=== PATIENT | male | born 1950 | race African-American/Black ===

== ENCOUNTER 2016-10-22 13:06 | Emergency (ER) | payer OTHER | END 2016-10-22 15:28 | disposition critical access hospital (66) | LOC: ER 13:06 | DX: I11.0 Hypertensive heart disease with heart failure (principal); I50.9 Heart failure, unspecified; J90 Pleural effusion, not elsewhere classified; I25.10 Atherosclerotic heart disease of native coronary artery without angina pectoris | CPT/HCPCS: 36415; 96374; J1940 ==

== ENCOUNTER 2016-10-22 13:06 | Inpatient (IN) | payer OTHER ==
[~2016-10-22] VITALS: Ht 188 cm; Wt 108.5 kg
== END 2016-10-30 16:05 | disposition home or self-care (01) | DRG 291 ==
LOC: ER 13:06 → MED 15:29
PROVIDERS: ADMIT Internal Medicine
PROC: 02HV33Z Insertion of Infusion Device into Superior Vena Cava, Percutaneous Approach (ICD-10-PCS; principal; 2016-10-23)
PROC: B548ZZA Ultrasonography of Superior Vena Cava, Guidance (ICD-10-PCS; 2016-10-23)
DX: I13.0 Hypertensive heart and chronic kidney disease with heart failure and stage 1 through stage 4 chronic kidney disease, or unspecified chronic kidney disease (principal); I50.21 Acute systolic (congestive) heart failure; N17.9 Acute kidney failure, unspecified; N39.0 Urinary tract infection, site not specified; L03.115 Cellulitis of right lower limb; I47.2 Ventricular tachycardia; D69.6 Thrombocytopenia, unspecified; F10.20 Alcohol dependence, uncomplicated; B95.2 Enterococcus as the cause of diseases classified elsewhere; E83.42 Hypomagnesemia; E87.6 Hypokalemia; B96.89 Other specified bacterial agents as the cause of diseases classified elsewhere; N18.9 Chronic kidney disease, unspecified; I73.9 Peripheral vascular disease, unspecified; D35.02 Benign neoplasm of left adrenal gland; I25.10 Atherosclerotic heart disease of native coronary artery without angina pectoris; Z95.5 Presence of coronary angioplasty implant and graft; E78.5 Hyperlipidemia, unspecified; E66.9 Obesity, unspecified; Z68.35 Body mass index [BMI] 35.0-35.9, adult; I25.2 Old myocardial infarction; Z87.891 Personal history of nicotine dependence; F12.10 Cannabis abuse, uncomplicated; Z82.49 Family history of ischemic heart disease and other diseases of the circulatory system; Z83.3 Family history of diabetes mellitus; R10.11 Right upper quadrant pain; I27.2 Other secondary pulmonary hypertension; L97.519 Non-pressure chronic ulcer of other part of right foot with unspecified severity; Z59.0 Homelessness
CPT/HCPCS: 36415; 73718; 80307; 93306; 97161-GP; 97165; C1751; G0480; J1644; J1650; J1940